=== PATIENT | male | born 1965 | race Caucasian/White ===

== ENCOUNTER 2018-01-25 13:39 | Emergency (ER) | payer SELFPAY ==
[2018-01-25 13:46] VITALS: BP 161/98; PULSE 115; RESP 20; TEMP 36.8; O2SAT 97
--- NOTE | 2018-01-25 14:17 | DI.RPTCT_ITS ---
SYMPTOMS/DIAGNOSIS: RIGHT EYE FLOATERS, BLURRY VISION, ? ACUTE CEREBROVASCULAR ACCIDENT NONCONTRAST HEAD CT: Comparison is made with November,. No intracranial hemorrhage, mass or infarct is seen. The ventricles are normal in size. There is no evidence of skull fracture or sinus opacification. IMPRESSION: Negative head CT.
--- NOTE | 2018-01-25 14:18 | ED.GENADUL_ITS ---
Disposition Clinical Impression: Visual floaters Disposition: HOME Condition: Stable Instructions: Visual Floaters (ED) Additional Instructions: You may have a posterior vitreous hemorrhage in your right eye. For further evaluation of this, follow-up with your scheduled appointment with [facility] at 4:20 PM tomorrow afternoon. The number for [facility] in [facility] is [phone]. Return to the emergency department with any worsening or new concerning symptoms. Medical Decision Making - Radiology Data Radiology results: report reviewed, image reviewed CT head: Negative CTA head negative CTA neck: 1. Minimal atheromatous plaquing within the carotid bulbs bilaterally. 2. Otherwise normal neck CTA. - Medical Decision Making 1345 -- 52yo M w/ a h/o HTN who presents with large squiggly floater in R eye x 4 days. Admits to blurry vision only when moving eye around and floater moves. He has no complains of eye injury, pain, headache or dizziness. No focal deficits. He ambulated easily back to room and is in no acute distress. OU 20/50, OD 20/40, OS 20/40. As there is no significant visual deficits or c/o complete painless loss of vision, retinal detachment less likely. Will obtain stat CT head and call neurology for recommendations. 1445 -- discussed with Dr. Vogt. Agrees with plan that if CT head negative, CTA head and neck would be recommended to rule out any embolus, and if otherwise negative recommends follow-up with [facility]. 1500 -- Case discussed with radiologist -CT head negative. Will send for CTA head and neck once labs resulted. 1645 --CT head and neck pending. Discussed with Dr. Alston at [facility] -states appears more consistent with a posterior vitreous detachment rather than a retinal detachment as patient has minimal visual loss. Does not need emergent transfer or evaluation. Can see patient in the office tomorrow. Patient requested afternoon appointment after work. Patient will follow-up at 4 :20 PM tomorrow. 1700 -- CTA head and neck negative for acute findings. Pt is requesting to leave. He appears in no acute distress and is fully dressed standing in doorway. Instructed to f/u with [facility] appointment tomorrow and to return here immediately with any worsening symptoms or concerns. History of Present Illness - General Chief complaint: EyeProblem Stated complaint: VISION IN RIGHT EYE Time Seen by Provider: 01/25/18 13:43 Source: patient Mode of arrival: ambulatory Limitations: no limitations - History of Present Illness Initial comments: Pt is a 52yo M who presents to the ED w/ a c/o a large squiggly floater in R eye for the past 4 days. Admits to blurry vision when he looks around and the floater moves. Otherwise denies any holes in vision, flashes of light, or loss of peripheral vision. Denies headache, dizziness, nausea, vomiting, chest pain, sob, or extremity weakness or numbness. Denies recent head or eye injury or eye pain. Wears reading glasses. Denies contacts. - Related Data Hydrochlorothiazide [Hydrodiuril] 25 mg PO DAILY #90 tab-cap 04/09/17 Lisinopril 5 mg PO DAILY #90 tab-cap 04/09/17 Allergies Allergy/AdvReac Type Severity Reaction Status Date / Time No Known Allergies Allergy Unverified 01/25/18 13:49 Review of Systems Constitutional: denies: chills, fever Eyes: vision change. denies: eye pain, eye discharge ENT: denies: ear pain, dental pain Respiratory: denies: cough, shortness of breath Cardiovascular: denies: chest pain, dyspnea on exertion Gastrointestinal: denies: abdominal pain, nausea, vomiting Genitourinary: denies: urgency, dysuria, frequency Musculoskeletal: denies: back pain Skin: denies: rash, lesions Neurological: denies: headache, weakness, numbness Past Medical History - Past Medical History Medical history: GERD, hypertension Surgical history: other (Hernia repair 2) - Social History Smoking status: current everyday smoker Alcohol use: occasionally Drug use: none General Exam - General Limitations: no limitations General appearance: alert, in no apparent distress - Head Head exam: Present: atraumatic, normocephalic - Eye Eye exam: Present: PERRL, EOMI. Absent: scleral icterus, conjunctival injection , periorbital swelling, periorbital tenderness - ENT ENT exam: Present: mucous membranes moist - Respiratory Respiratory exam: Present: normal lung sounds bilaterally. Absent: respiratory distress, wheezes, rales, rhonchi, stridor - Cardiovascular Cardiovascular Exam: Present: regular rate, normal rhythm. Absent: bradycardia , tachycardia - GI/Abdominal GI/Abdominal exam: Present: soft, normal bowel sounds. Absent: distended, tenderness, guarding, rebound, rigid - Neurological Exam Neurological exam: Present: alert, oriented X3, CN II-XII intact, other (MS 5/5 b/l UE/LE). Absent: motor sensory deficit - Psychiatric Psychiatric exam: Present: normal affect - Skin Skin exam: Present: warm, dry. Absent: intact Course Vital Signs - 24 hr 01/25/18 13:46 Temperature 98.2 F Pulse 115 H Respiratory 20 Rate Blood Pressure 161/98 Pulse Oximetry 97
[2018-01-25 15:39] LABS: Abs Immature Grans 0.03 k/cumm (0.0-0.09); Absolute Basophil Count 0.03 k/cumm (0.0-0.2); Absolute Eosinophil Count 0.08 k/cumm (0.0-0.7); Absolute Lymphocyte Count 1.91 k/cumm (1.2-3.4); Absolute Monocyte Count 0.84 k/cumm (0.11-0.7); Absolute Neutrophil Count 5.34 k/cumm (1.2-6.7); Basophils % 0.4; HCT 48.8 % (40.0-50.0); Immature Grans % 0.4; Lymphocytes % 23.2; Mean Corp. HGB Concentration 34.8 g/dL (32.0-36.0); Mean Corpuscular Hemoglobin 33.3 pg (27.0-33.0); Mean Corpuscular Volume 95.5 fL (80-95); Mean Platelet Volume 10.1 fL (8.0-11.0); Monocytes % 10.2; Neutrophils % 64.8; Platelet Count 301 x1000/uL (130-400); RBC 5.11 m/cumm (4.50-6.00); RBC Distribution Width 13.3 % (11.8-14.1); White Blood Cell Count 8.23 k/cumm (4.4-10.8)
[2018-01-25 15:52] LABS: Anion Gap 7.8 mmol/L (3-11); BUN 9 mg/dL (7-18); CO2 32.2 mmol/L (21.0-32.0); CREATININE 0.86 mg/dL (0.70-1.30); Calcium 9.3 mg/dL (8.5-10.1); Chloride 98 mmol/L (98-107); Glucose 115 mg/dL (70-100); Potassium 3.6 mmol/L (3.5-5.1); Sodium 138 mmol/L (136-145)
[2018-01-25] MEDS: Normal Saline 1,000 ML 1000 ML IV (16:05)
--- NOTE | 2018-01-25 16:25 | DI.RPTCT_ITS ---
SYMPTOMS/DIAGNOSIS: RT EYE FLOATERS, ? VESSEL OCCLUSION CT ANGIOGRAPHY CERVICAL AND CRANIAL: CT angiography was performed with multi slice acquisition and multi planar and 3D reconstruction. CT Angiogram of the cervical and cranial regions was performed with intravenous infusion of 85 cc's of Omnipaque 350. Images obtained through the lung apices show no specific abnormality of the lungs. The tracheal laryngeal structures appear intact. No superior mediastinal or cervical mass or adenopathy. The bony structures appear intact. The orbital and temporal bone structures are unremarkable as visualized. The aortic arch and major branch vessels appear intact. Right and left common and internal carotid arteries are essentially normal with no significant stenosis, aneurysm or dissection. Minimal atheromatous plaque in right and left carotid bulbs. Middle, anterior and posterior cerebral arteries are unremarkable in appearance as are their major branches. No occlusion or aneurysm identified. Vertebral and basilar arteries appear normal. The posterior cerebral arteries appear normal. CONCLUSION: Negative CTA neck and head.
[2018-01-25] MEDS: Omnipaque 350 MG/ML 100 ML BTL IJ (16:34)
--- NOTE | 2018-01-25 17:01 | DI.VRAD_ITS ---
EXAM: CT Angiography Head With Intravenous Contrast CLINICAL HISTORY: 52 years old, male; Signs and symptoms; Other: Rt eye floaters, R/O vessel occlusion TECHNIQUE: Axial computed tomographic angiography images of the head with intravenous contrast using CT angiography protocol. MIP reconstructed images were created and reviewed. Coronal reformatted images were created and reviewed. CONTRAST: 85 mL of Omnipaque 350 administered intravenously. COMPARISON: No relevant prior studies available. FINDINGS: Right internal carotid artery: No acute findings. Intracranial segment is patent with no significant stenosis. No aneurysm. Right anterior cerebral artery: Unremarkable. No occlusion or significant stenosis. No aneurysm. Right middle cerebral artery: Unremarkable. No occlusion or significant stenosis. No aneurysm. Right posterior cerebral artery: Unremarkable. No occlusion or significant stenosis. No aneurysm. Right vertebral artery: Unremarkable as visualized. Left internal carotid artery: No acute findings. Intracranial segment is patent with no significant stenosis. No aneurysm. Left anterior cerebral artery: Unremarkable. No occlusion or significant stenosis. No aneurysm. Left middle cerebral artery: Unremarkable. No occlusion or significant stenosis. No aneurysm. Left posterior cerebral artery: Unremarkable. No occlusion or significant stenosis. No aneurysm. Left vertebral artery: Unremarkable as visualized. Basilar artery: Unremarkable. No occlusion or significant stenosis. No aneurysm. IMPRESSION: 1. Normal head CTA. EXAM: CT Angiography Neck With Intravenous Contrast CLINICAL HISTORY: 52 years old, male; Signs and symptoms; Other: Rt eye floaters, R/O vessel occlusion TECHNIQUE: Axial computed tomographic angiography images of the neck with intravenous contrast using CT angiography protocol. MIP reconstructed images were created and reviewed. Coronal reformatted images were created and reviewed. CONTRAST: 85 mL of Omnipaque 350 administered intravenously. 85 mL of Omnipaque 350 administered intravenously. COMPARISON: CT - HEAD WITHOUT CONTRAST 2018-01-25 14:36 FINDINGS: VASCULATURE: Right common carotid artery: Minimal focal atheromatous calcific plaquing is seen in the medial carotid bulb. No significant stenosis. No dissection or occlusion. Right internal carotid artery: Unremarkable. Extracranial segment is patent with no significant stenosis. No dissection or occlusion. Right external carotid artery: Unremarkable. No occlusion. Right vertebral artery: Unremarkable. No significant stenosis. No dissection or occlusion. Left common carotid artery: Atherosclerotic calcific plaquing is present within the lateral carotid bulb. No significant stenosis. No dissection or occlusion. Left internal carotid artery: Unremarkable. Extracranial segment is patent with no significant stenosis. No dissection or occlusion. Left external carotid artery: Unremarkable. No occlusion. Left vertebral artery: Unremarkable. No significant stenosis. No dissection or occlusion. NECK: Bones/joints: No acute fracture. No dislocation. Soft tissues: Unremarkable as visualized. No mass. CAROTID STENOSIS REFERENCE USING NASCET CRITERIA: % ICA stenosis = (1 - narrowest ICA diameter/diameter of distal cervical ICA) x 100. Mild - <50% stenosis. Moderate - 50-69% stenosis. Severe - 70-94% stenosis. Near occlusion - 95-99% stenosis. Occluded - 100% stenosis. IMPRESSION: 1. Minimal atheromatous plaquing within the carotid bulbs bilaterally and are as described above. 2. Otherwise, normal neck CTA. Dictated and Authenticated by: Xander Ellington MD. Ordering:AVRIL OREILLY MD
[2018-01-25 17:03] VITALS: BP 122/87; PULSE 98; RESP 18; TEMP 36.7; O2SAT 98
[2018-01-25 17:23] VITALS: BP 122/87; PULSE 98; RESP 18; TEMP 36.7; O2SAT 98
== END 2018-01-25 17:23 | disposition home or self-care (01) ==
PROVIDERS: Emergency Provider Physician Assistant; PCP Emergency Medicine
DX: H43.391 Other vitreous opacities, right eye (principal); H53.8 Other visual disturbances; I10 Essential (primary) hypertension
CPT/HCPCS: 36415; 70496; 70498; 80048; 99284; 70450; 85025; 99285; J3490

== ENCOUNTER 2019-01-30 14:23 | Emergency (ER) | payer SELFPAY ==
[2019-01-30 14:31] VITALS: BP 137/99; PULSE 113; RESP 16; TEMP 36.7; O2SAT 96
--- NOTE | 2019-01-30 15:05 | DI.RAD_ITS ---
SYMPTOM/DIAGNOSIS: LEFT SHOULDER PAIN BEGAN WHILE LIFTING. LEFT SHOULDER: 01/30 Five views were obtained. Note is made of an old healed or healing fracture of the left 5th rib posteriorly. There are mild degenerative changes of the glenohumeral and acromioclavicular joints. There is no evidence of an acute fracture or dislocation.
[2019-01-30] MEDS: Lidocaine 5% Patch 1 PATCH (16:23)
--- NOTE | 2019-01-30 16:51 | ED.GENADUL_ITS ---
Discharge Plan Disposition Patient Disposition: HOME Condition: Stable Discharge Details Chief Complaint: Orthopedic Clinical Impression: Shoulder pain Primary Care Provider: Bud Dacosta ED Provider: Emily Sexton Home Meds and New Rx's Prescriptions: New lidocaine [Lidoderm] 5 % adhesive patch,medicated 1 patch TP DAILY Qty: 15 RF: 0 Continued hydrochlorothiazide 25 mg tablet 25 mg PO DAILY Qty: 90 RF: 4 lisinopril 5 mg tablet 5 mg PO DAILY Qty: 90 RF: 4 Discharge Instructions Instructions: Shoulder Pain (ED) Additional Instructions: Please return immediately to the emergency department if you develop any new or worsening symptoms or if you become otherwise concerned. It is extremely important that you call as soon as possible to make an appointment to be seen in follow-up for this visit by an orthopedic surgeon and also by your primary care doctor. Stand Alone Forms: Work Release Referrals: Bud Dacosta, [Primary Care Provider] - Rasheed Gordon MD [ [facility] STAFF PHYSICIAN] - Discharge Data Discharge Date/Time-TO BE ENTERED AT DEPARTURE: 01/30/19 17:07 Medical Decision Making Suleman Velez is a 53 y/o man with h/o HTN who presented to the emergency depart ment with shoulder pain that began while patient was lifting a cement block 3 days ago, unchanged since that time. Record review shows patient seen here recently for visual changes, patient reports not resolved. On exam patient is very well and nontoxic appearing. Focal tenderness to palpation at the coracoid without overlying skin changes. Patient able to range the shoulder fully, though has pain with abduction greater than 180 degrees and placing her behind his back. Mild tachycardia at 100. Exam/history is not consistent with ACS, PE, DVT, PTX, acute aortic or other vascular pathology, other acute emergent life- threatening process. Doubt fracture, suspect soft tissue injury. Plan for x- ray, EKG for tachycardia. Patient states that he does not want to undergo further evaluation for tachycardia, also record review shows patient with heart rate 98 or greater on multiple visits to the ED beginning 07/01. Shoulder x-ray okay. I had a lengthy discussion with the patient regarding return to emergency department precautions, home care, importance of outpatient follow-up with for shoulder pain and also for tachycardia. Patient verbalized understanding of the plan and was amenable. All questions were answered. Patient was discharged home with clear plan for outpatient follow-up. Medical Records Medical records reviewed: Yes I reviewed the patient's medical records. Imaging Data Radiologic Study: Attestation: I personally reviewed and interpreted this imaging study as follows: Radiologist's impression: EXAM: XR Left Shoulder EXAM DATE/TIME: 01/30/2019 3:05 PM CLINICAL HISTORY: 53 years old, male; Left; Patient HX: L shoulder pain began while lifting TECHNIQUE: Imaging protocol: XR Left shoulder. Views: 2 or more views. COMPARISON: No relevant prior studies available. FINDINGS: Bones/joints: Healing fifth posterior rib fracture. Degenerative changes of the acromioclavicular joint. Soft tissues: Unremarkable. IMPRESSION: 1. No evidence for acute bony injury left shoulder. 2. Healing fifth posterior rib fracture. ECG Data Attestation: I personally reviewed and interpreted this ECG (s) as follows: Interpretation: EKG shows sinus tachycardia at 103, borderline axis, incomplete right bundle branch block present on prior 2016, no STEMI, nondiagnostic EKG HPI General Mode of arrival: ambulatory . Date/Time Provider Initiated Documentation: 01/30/19 14:34 . Limitations to Documentation: no limitations . Information obtained by: patient, RN notes reviewed and old records reviewed . HPI Narrative: Suleman Velez is a 53-year-old man with a history of hypertension presenting to the emergency department shoulder pain. Patient reports that 3 days ago he was lifting cement blocks when he felt sudden onset of sharp pain in his anterior left shoulder, nonradiating. Patient reports that pain has been on-going since that time, severity unchanged. Patient reports that when he is not using the arm, his pain resolves. He reports that when he lifts the arm above his head, rotates the arm behind his back, or pushes on the area the pain returns. Pain is nonpleuritic, non-exertional. He denies any other pain, cough, shortness of breath, fever, vomiting, diarrhea, numbness, weakness, swelling. Has been eating and drinking as usual. Going about his daily activities as usual. No recent illness, no recent travel. Related Data Home Medications Medication Instructions Recorded Confirmed hydrochlorothiazide 25 mg tablet 25 mg PO DAILY #90 tab-cap 05/13/18 01/30/19 lisinopril 5 mg tablet 5 mg PO DAILY #90 tab-cap 05/13/18 01/30/19 lidocaine [Lidoderm] 1 patch TP DAILY #15 each 01/30/19 Previous Rx's Medication Instructions Recorded hydrochlorothiazide 25 mg tablet 25 mg PO DAILY #90 tab-cap 05/13/18 lisinopril 5 mg tablet 5 mg PO DAILY #90 tab-cap 05/13/18 lidocaine [Lidoderm] 1 patch TP DAILY #15 each 01/30/19 Allergies Allergy/AdvReac Type Severity Reaction Status Date / Time No Known Allergies Allergy Unverified 01/25/18 13:49 General Stated Complaint: Orthopedic KENDELL: 4 Review of Systems Review of Systems Constitutional: denies fevers Eyes: denies eye pain ENT: denies facial pain, dental pain, sore throat Cardiovascular: denies chest pain, edema Respiratory: denies SOB, cough GI: denies abdominal pain, vomiting, diarrhea : denies flank pain MSK: denies back pain, neck pain, myalgias, reports shoulder pain Skin: denies rash Neuro: denies headaches, numbness, weakness PFSH Social History Smoking/Tobacco Use Status: Current every day Tobacco Type: cigarettes Alcohol Intake: current Alcohol Intake frequency: 0-2 drinks per day Drug use: Rarely Substance use type: marijuana Do you feel safe at home: Yes Do you feel safe in your relationship?: Yes Exam Narrative Exam Narrative: Constitutional: well and [id number], pleasant, conversing normally HENT: head atraumatic/normocephalic/normal inspection, mucous membranes moist Eyes: conjunctiva normal, sclera normal, pupils 3mm b/l Neck: no stridor, normal ROM, trachea midline Chest: normal inspection Resp: normal work of breathing, LCTAB Cardio: tachycardic rate 100, normal rhythm, no murmur appreciated Back: normal inspection, no rash Skin: warm, dry, normal color, no rash Neuro: alert, not altered, grossly non-focal, normal tone Ext: no edema, radial pulses intact and symmetric, no tenderness of the left forearm or upper arm, no tenderness of the left scapula or clavicle, focal tenderness to palpation just superior and lateral to the coracoid that reproduces pain. Full range of motion of the shoulder, no pain reproduced with abduction greater than 180 degrees and rotation of the arm behind the patient's back. Motor 5 out of 5 bilateral upper extremities. Normal sensation left arm. Psych: normal mood, normal affect, normal behavior Course Vital Signs Temperature 36.7 C 01/30/19 14:31 Pulse 113 H 01/30/19 14:31 Respiratory Rate 16 01/30/19 14:31 Blood Pressure 137/99 H 01/30/19 14:31 Pulse Oximetry 96 01/30/19 14:31 Temperature 36.7 C 01/30/19 14:31 Temperature Source Temporal Artery Scan 01/30/19 14:31 Pulse 113 H 01/30/19 14:31 Respiratory Rate 16 01/30/19 14:31 Respiratory Effort Non-Labored 01/30/19 14:34 Blood Pressure 137/99 H 01/30/19 14:31 Blood Pressure Position Supine 01/30/19 14:31 Pulse Oximetry 96 01/30/19 14:31 Oxygen Delivery Method Room Air 01/30/19 14:31 Oxygen Flow Rate 0 01/30/19 14:31
[2019-01-30 16:54] VITALS: BP 133/88; PULSE 107; RESP 16; O2SAT 96
[2019-01-30] MEDS: Ibuprofen 400 MG TAB PO (16:54)
--- NOTE | 2019-01-30 16:57 | DI.VRAD_ITS ---
EXAM: XR Left Shoulder EXAM DATE/TIME: 01/30/2019 3:05 PM CLINICAL HISTORY: 53 years old, male; Left; Patient HX: L shoulder pain began while lifting TECHNIQUE: Imaging protocol: XR Left shoulder. Views: 2 or more views. COMPARISON: No relevant prior studies available. FINDINGS: Bones/joints: Healing fifth posterior rib fracture. Degenerative changes of the acromioclavicular joint. Soft tissues: Unremarkable. IMPRESSION: 1. No evidence for acute bony injury left shoulder. 2. Healing fifth posterior rib fracture. Dictated and Authenticated by: Charley Ramirez MD. Ordering:JOE Diaz MD
== END 2019-01-30 17:07 | disposition home or self-care (01) ==
PROVIDERS: Emergency Provider Student in an Organized Health Care Education/Training Program; PCP Emergency Medicine
DX: M25.512 Pain in left shoulder (principal); X50.0XXA Overexertion from strenuous movement or load, initial encounter; Y99.0 Civilian activity done for income or pay; I10 Essential (primary) hypertension; R00.0 Tachycardia, unspecified; Z04.2 Encounter for examination and observation following work accident
CPT/HCPCS: 93005; 99285; 73030; 93010; 99284; L3650

== ENCOUNTER 2019-07-01 08:37 | Emergency (ER) | payer OTHER, SELFPAY ==
[2019-07-01 08:40] VITALS: BP 163/96; PULSE 121; TEMP 37; O2SAT 98
--- NOTE | 2019-07-01 08:52 | W.ED.GENAD ---
Discharge Plan Disposition Patient Disposition: HOME Condition: Improving Discharge Details Chief Complaint: Laceration Clinical Impression: Laceration of axilla, left Primary Care Provider: Bud Dacosta ED Provider: Martinez Ramos Home Meds and New Rx's Prescriptions: New cephalexin 500 mg capsule 500 mg PO TID 7 Days Qty: 21 RF: 0 Continued hydrochlorothiazide 25 mg tablet 25 mg PO DAILY Qty: 90 RF: 4 lisinopril 5 mg tablet 5 mg PO DAILY Qty: 90 RF: 4 No Action lidocaine [Lidoderm] 5 % adhesive patch,medicated 1 patch TP DAILY Qty: 15 RF: 0 Discharge Instructions Instructions: Laceration (ED) Additional Instructions: Followup in Surgery clinic on Wednesday at 9AM for recheck. The clinic number is [phone]. Leave drain in place. You may need frequent dressing changes as we discussed. Wear sling until seen in general surgery clinic. Take antibiotics as prescribed. Return for worsening pain, the development of fever, foul smelling discharge from the wound, numbness or weakness of the hand, or any other concerns. May use Tylenol and ibuprofen as needed for pain. Referrals: Wendi Spencer MD [ [facility] STAFF PHYSICIAN] - Medical Decision Making 54-year-old male presents from home stating he slipped and fell on his front porch this morning and lacerated his left axilla on the edge of a porch board. Denies any other injury. On exam he has a large laceration that tracks proximally into the axilla. He has normal distal radial pulse, no sensation deficits and normal motor throughout. There does not appear to be injury to the neurovascular bundle/brachial plexus. Patient consented for procedure, he was given parenteral antibiotic, small amount of anxiolytic, fluid bolus. I discussed the case with Dr. Spencer. Patient was anesthetized, liberally irrigated with approximately 400 cc of fluid, examined in a bloodless field with no evidence of foreign body. 2 deep 4-0 Vicryl sutures were placed in the subcutaneous layers. A [place] drain was placed. 12 interrupted Prolene sutures including 1 to anchor the [place] drain were placed with good wound apposition. Patient improved following procedure. I will place him on Keflex. He will follow-up with surgery clinic at 9 AM on Wednesday for wound check. I will place him in a sling until that time. He understands return precautions to the ER in the interim. HPI General Mode of arrival: ambulatory. Date/Time Provider Initiated Documentation: 07/01/19 08:38. Limitations to Documentation: no limitations. Information obtained by: patient. History of Present Illness 54 year old M presents to the emergency department with the chief complaint of Left axilla injury, described as moderate, Quality is described as dull, and is localized to the left. Patient reports no radiation. Patient started experiencing this hour(s) and it has been constant. No relieving factors improve symptom(s), No exacerbating factors reported . Patient notes denies chest pain, headaches, nausea/vomiting, shortness of breath and syncope. Patient did receive the following treatments prior to arrival, none Related Data Home Medications Medication Instructions Recorded Confirmed hydrochlorothiazide 25 mg tablet 25 mg PO DAILY #90 tab-cap 05/13/18 01/30/19 lisinopril 5 mg tablet 5 mg PO DAILY #90 tab-cap 05/13/18 01/30/19 lidocaine [Lidoderm] 1 patch TP DAILY #15 each 01/30/19 cephalexin 500 mg PO TID 7 Days #21 cap 07/01/19 Previous Rx's Medication Instructions Recorded hydrochlorothiazide 25 mg tablet 25 mg PO DAILY #90 tab-cap 05/13/18 lisinopril 5 mg tablet 5 mg PO DAILY #90 tab-cap 05/13/18 lidocaine [Lidoderm] 1 patch TP DAILY #15 each 01/30/19 cephalexin 500 mg PO TID 7 Days #21 cap 07/01/19 Allergies Allergy/AdvReac Type Severity Reaction Status Date / Time No Known Allergies Allergy Unverified 01/25/18 13:49 General Stated Complaint: Laceration KENDELL: 4 Review of Systems Narrative: Denies other injury. No head/neck/backslash abdominal pain. No shortness of breath. 6 systems reviewed and otherwise negative. PFSH Social History Smoking/Tobacco Use Status: Current every day Tobacco Type: cigarettes Alcohol Intake: current Alcohol Intake frequency: 0-2 drinks per day Drug use: Rarely Substance use type: marijuana Do you feel safe at home: Yes Do you feel safe in your relationship?: Yes Exam Narrative Exam Narrative: GEN: awake, alert, oriented 3. Pleasant, well groomed, interactive. HEAD: Normocephalic, atraumatic ENT: Mucous membranes moist, oropharynx unremarkable, External ear exam unremarkable EYES: PERRL, EOMI NECK: Full ROM, no ZEFERINO, no menigismus CHEST/RESP: The left axilla has a jagged, irregular large puncture wound with approximately 8 cm, no bony tenderness, chest is clear to auscultation bilateral, no wheeze/rhonchi/rales CARDIOVASCULAR: RRR, no murmur, rub anita. 2+ Rad pulse bilateral ABDOMEN: Soft, nontender, no mass. +Bowel sounds EXT: Full ROM, no edema, no rash. 2+ radial pulse bilateral upper extremity. Patient extends the wrist with normal 5 out of 5 motor. Is able to make the okay sign cross long finger over index and touch thumb to fifth digit without difficulty. Sensation is intact throughout. Motor of the biceps and triceps as well as arm abduction is 5 out of 5 throughout. Neuro: Grossly normal neurologic exam, conversant, interactive. Psych: Speech fluent, thoughts congruent, affect normal Course Vital Signs Vital signs: Vital Signs Temperature 37.0 C 07/01/19 08:40 Pulse 121 H 07/01/19 08:40 Blood Pressure 163/96 H 07/01/19 08:40 Pulse Oximetry 98 07/01/19 08:40 Temperature 37.0 C 07/01/19 08:40 Temperature Source Skin 07/01/19 08:40 Pulse 121 H 07/01/19 08:40 Blood Pressure 163/96 H 07/01/19 08:40 Blood Pressure Position Sitting 07/01/19 08:40 Pulse Oximetry 98 07/01/19 08:40 Oxygen Delivery Method Room Air 07/01/19 08:40 Oxygen Flow Rate 0 07/01/19 08:40 Pain Level 4 07/01/19 08:40 Procedures Laceration Laceration 1: Site: chest and upper extremity Side (If applicable): left Size (cm): 8 Description: irregular Depth: simple, single layer Local Anesthetic: Lidocaine 1% Amount of anesthesia used (mL): 15 Pre-repair: wound explored and irrigated extensively Skin layer closed with: other (Prolene) Size (cm): 4-0 Number of sutures: 12 Technique: simple, interrupted Subcutaneous layer closed with: vicryl Size: 4-0 Number of sutures: 2 Technique: simple, interrupted
[2019-07-01] MEDS: Normal Saline 1,000 ML 1000 ML IV (09:05)
[2019-07-01] MEDS: ceFAZolin 1 GM/50 ML BAG IVPB (09:06)
[2019-07-01] MEDS: Normal Saline Flush 10 ML SYR IVP (09:08)
[2019-07-01] MEDS: Lidocaine 1% Multi-Dose 50 ML VIAL IJ (09:08)
[2019-07-01] MEDS: LORazepam 2 MG/ML VIAL 0.5 MG IVP ×2 (09:15→09:30)
[2019-07-01] MEDS: Ketorolac 15 MG/ML VIAL IVP (09:29)
[2019-07-01] MEDS: Tetanus & Diphtheria Tox,ADULT 0.5 ML VIAL IM (09:31)
[2019-07-01 10:22] VITALS: BP 155/93; PULSE 112; RESP 16; O2SAT 96
[2019-07-01] MEDS: Cephalexin 500 MG CAP, 4 CAPS/BTL PO (10:26)
== END 2019-07-01 09:26 | disposition home or self-care (01) ==
PROVIDERS: Emergency Provider Emergency Medicine; PCP Emergency Medicine
DX: S41.112A Laceration without foreign body of left upper arm, initial encounter (principal); W26.8XXA Contact with other sharp object(s), not elsewhere classified, initial encounter; W01.198A Fall on same level from slipping, tripping and stumbling with subsequent striking against other object, initial encounter; I10 Essential (primary) hypertension
CPT/HCPCS: 12034; 36415; 90471; 96361; 96365; 96375; 99284; 99283; J0690; J1885; J2060; L3650

== ENCOUNTER 2020-11-25 08:33 | Outpatient (CLI) | payer SELFPAY ==
[2020-11-25 12:52] LABS: Hemoglobin A1C 5.2 % (<5.7)
[2020-11-25 12:59] LABS: ALT 58 U/L (16-63); AST 30 U/L (15-37); Albumin 4.2 g/dL (3.4-5.0); Alkaline Phosphatase 86 U/L (46-116); Anion Gap 9.3 mmol/L (3-11); BUN 13 mg/dL (7-18); Bilirubin, Total 0.6 mg/dL (0.2-1.0); CO2 28.7 mmol/L (21.0-32.0); CREATININE 0.8 mg/dL (0.70-1.30); Calcium 9.5 mg/dL (8.5-10.1); Calculated LDL 94 mg/dL (<100); Chloride 99 mmol/L (98-107); Cholesterol 164 mg/dL (<200); Glucose 119 mg/dL (74-106); HDL Cholesterol 62 mg/dL (40-60); Potassium 4.2 mmol/L (3.5-5.1); Sodium 137 mmol/L (136-145); Total Protein 7.4 g/dL (6.4-8.2); Triglyceride 43 mg/dL (<150)
== END 2020-11-25 08:34 | disposition home or self-care (01) ==
LOC: LOS 08:33
PROVIDERS: PCP Nurse Practitioner Family; Visit Provider Nurse Practitioner Family
DX: I10 Essential (primary) hypertension (principal); Z13.1 Encounter for screening for diabetes mellitus; Z13.220 Encounter for screening for lipoid disorders
CPT/HCPCS: 36415; 80053; 80061; 83036

== ENCOUNTER 2022-09-28 12:49 | Emergency (ER) | payer BC, SELFPAY ==
[2022-09-28 12:57] VITALS: BP 177/96; PULSE 110; RESP 16; TEMP 37.3; O2SAT 98
--- NOTE | 2022-09-28 15:00 | DI.RAD_ITS ---
Exam(s) XR RIBS LT W PA LAT CHEST EXAM: XR RIBS LT W PA LAT CHEST CLINICAL HISTORY: fall on left side. TECHNIQUE: 2D digital imaging was performed. COMPARISON: CR CHEST 2 VIEWS PA,LAT from 04/21/2010 FINDINGS: Total 6 views: Left rib cage: Are mildly displaced fractures of the left 6, 7th and 8th ribs. There is no pneumothorax but there is infiltrate in the left lower lobe the hind the arch shadow whic h was not evident on chest x-ray of 2009. No other pulmonary findings. No pneumothorax. Heart size normal. Mediastinum not widened or shifted. Right hemithorax unremarkable. IMPRESSION: There are mildly displaced fractures of left 6, 7th, and 8th ribs. No pneumothorax but there is infiltrate in the left lower lobe evident. DATA REPOSITORY: RADIATION DOSE DELIVERED:
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
[2022-09-28 16:27] VITALS: BP 140/98; PULSE 103; RESP 16; TEMP 36.5; O2SAT 95
== END 2022-09-28 16:30 | disposition home or self-care (01) ==
PROVIDERS: Emergency Provider Physician Assistant; PCP Nurse Practitioner Family
DX: S22.42XA Multiple fractures of ribs, left side, initial encounter for closed fracture (principal); W18.40XA Slipping, tripping and stumbling without falling, unspecified, initial encounter; I10 Essential (primary) hypertension
CPT/HCPCS: 99283; 71046; 71100; 99284

== ENCOUNTER 2023-07-21 09:47 | Outpatient (REF) | payer BC, SELFPAY ==
--- NOTE | 2023-07-21 07:30 | SKI_PTH ---
PATIENT: Suleman Velez LOC: [facility] U#:[id number] AGE/SX: 58/M ROOM: RE07/21/[address]: Miles Kaur MD : 1965 BED: DIS: 07/21/2023 SPEC #: [id number] RECD: 07/21/23 18:17 STATUS: WILFRED ELLIOTT #: [id number] GO: 07/21/23 07:[address]: Miles Kaur DEPT: Surgical Specimen RECD BY: Sapna Lewis ENTERED: 07/21/23 18:18 SP TYPE: CHARLI DOZIER DR: Feng Carpenter, SYSTEMS INTEGRATOR Tissues: 1 - SKIN BIOPSY(SHAVE/PUNCH) 2 - SKIN BIOPSY(SHAVE/PUNCH) Procedures: SKIN LEVEL 4 Comments: [id number]
== END 2023-07-21 09:48 | disposition home or self-care (01) ==
LOC: LBN 09:47
PROVIDERS: PCP Nurse Practitioner Family; Visit Provider Otolaryngology
DX: L98.9 Disorder of the skin and subcutaneous tissue, unspecified (principal); L21.9 Seborrheic dermatitis, unspecified
CPT/HCPCS: 88305

== ENCOUNTER 2024-01-21 09:01 | Emergency (ER) | payer BC, SELFPAY ==
[2024-01-21 09:04] VITALS: BP 181/111; PULSE 99; RESP 20; TEMP 36.6; O2SAT 100
--- NOTE | 2024-01-21 09:15 | DI.RAD_ITS ---
Exam(s) XR KNEE RT 3V AP,LAT,WINNIE EXAM: XR KNEE RT 3V AP,LAT,WINNIE CLINICAL HISTORY: pain s/p fall. TECHNIQUE: 2D digital imaging was performed. COMPARISON: No exams were available for comparison FINDINGS: There are 2 orthopedic pins in the patella. There are 2 parallel thin nondisplaced fracture lines in the lateral half of the patella, age indeter minate. No significant displacement. No other fractures identified but there is a prominent joint e ffusion. Also calcifications seen in the soft tissues above the patella. Otherwise there is advanced degenerative narrowing of the medial compartment of the knee. Also chond rocalcinosis in the medial lateral compartments. IMPRESSION: Two orthopedic pins evident in the patella. Patellar fracture lines noted which are nondisplaced. U nfortunately there are no previous radiographs of the knee in our PACS for comparison. There is mild anterior soft tissue swelling over the patella. There is a large joint effusion. Other findings as above. DATA REPOSITORY: RADIATION DOSE DELIVERED:
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
[2024-01-21 10:18] VITALS: BP 156/104; PULSE 99; RESP 18; O2SAT 100
== END 2024-01-21 10:34 | disposition home or self-care (01) ==
PROVIDERS: Emergency Provider Emergency Medicine; PCP Nurse Practitioner Family
DX: S82.091A Other fracture of right patella, initial encounter for closed fracture (principal); S80.01XA Contusion of right knee, initial encounter; F17.210 Nicotine dependence, cigarettes, uncomplicated; Z86.718 Personal history of other venous thrombosis and embolism; W01.198A Fall on same level from slipping, tripping and stumbling with subsequent striking against other object, initial encounter; Y93.01 Activity, walking, marching and hiking; Y92.480 Sidewalk as the place of occurrence of the external cause
CPT/HCPCS: 73562; 99283

== ENCOUNTER 2024-08-07 07:41 | Day surgery (SDC) | payer BC, SELFPAY ==
--- NOTE | 2024-08-06 10:13 | PDOC.DSDIS_ITS ---
Date of service: 08/06/24 Discharge Plan Disposition Patient Disposition: Home Condition: Good Discharge Details Reason For Visit: Screening colonoscopy Attending Provider: Jude Tyler Primary Care Provider: Feng Carpenter Home Meds and New Rx's Prescriptions: Continued lisinopril 30 mg tablet 30 mg PO DAILY Qty: 90 3RF Discontinued bisacodyl [Dulcolax (bisacodyl)] 5 mg tablet,delayed release (DR/EC) 5 mg PO ONCE Qty: 4 0RF Rx Instructions: Take per colonoscopy instructions provided by ordering providers office polyethylene glycol 3350 17 gram/dose powder 17 g PO ONCE Qty: 238 0RF Rx Instructions: Take per colonoscopy instructions provided by ordering providers office Discharge Instructions Instructions: Colon polyps, Diverticulosis Additional Instructions: Xiomy, was very nice meeting you today, and I hope you feel well after the procedure. I did find, and remove a total of 9 polyps today. This is a relatively high number of polyps, and 2 of them are particularly large. All of these polyps will be sent off to the pathologist for their review, since polyps, and a number of different varieties, and that information is quite important in ruling out colon cancers, and helping to determine intervals between screening colonoscopies. Because of the 2 large polyps that you had removed today, my inclination is to repeat your colonoscopy at 1 year, but I did like to wait to see the pathology report before making any final decisions. I did also use a tattoo to jelani one of these polyp areas so that we can identify the exact location and future colonoscopies. Based on the number, and size of the polyps that I removed today, I would anticipate a little bit of bleeding in your first few stools. Do not be alarmed if this occurs. If you start passing large blood clots (like red Jell-O blobs) I would like to know about that. Hopefully, you do not experience any bleeding at all, but it certainly is possible based on what we had to do today. The results from the polyp analysis will take about a week or 2 to get back, but once I have that information, my office will be in touch. Incidentally, he also have quite a bit of diverticulosis. Diverticula are weak spots in the muscular layer of the colon wall that cause pockets or pouches to form. These pockets are called diverticula, and the condition of having them is known as diverticulosis. Maintaining a diet that is rich in fiber, staying well- hydrated, and avoiding constipation are the basic approaches to managing this. I will attach a little bit of information here about diverticulosis as well as colon polyps. 1. If tolerated, consume a soft, low fiber diet for 1-2 days. 2. Do not drive, drink alcohol, operate machinery, make critical decisions, or do activities that require coordination or balance for 24 hours. 3. Because air was put into your colon during the procedure, expelling air from your rectum (passing gas or farting) is normal. 4. You may not have a bowel movement for 1-3 days because of the colonoscopy prep. This is normal. 5. Go directly to the emergency room if you notice any of the following: Develop chills (warm to touch), or if you have a thermometer and your temperature is above 101 Difficulty breathing or difficultly swallowing Persistent vomiting Severe abdominal pain, other than gas cramps Severe chest pain Black, tarry stools Any bleeding ? exceeding one tablespoon 6. Call your physician if the site where your intravenous was started becomes red, swollen, painful, and warm to touch. 7. Your physician has reviewed your pre-procedure medications. Please continue to take those medications as previously ordered. You will be given specific information/education regarding any changes to your medications before leaving. Activity:: Activity as Tolerated Diet:: As Tolerated Discharge Orders Discharge Orders: Discharge Order (Routine); Ordered 08/06/24 Ordered By: Jude Tyler DS: Diagnosis Discharge Diagnosis (1) Encounter for screening colonoscopy: Status: Acute Asessment and Plan: Follow-up on polypectomy results
--- NOTE | 2024-08-06 10:14 | COLE_ITS ---
Date of service: 08/07/24 Time of Service: 09:38 Colonoscopy Report Date of procedure: 08/07/24 Pre-op diagnosis general: screening colonoscopy Post-op diagnosis procedure note: other (Colorectal polyps, diverticulosis) Procedure: Colonoscopy with polypectomy and tattooing Surgeon: Jude Tyler Anesthesia Type: General:No Airway Estimated blood loss (mL): 10 Pathology: other (9 colon and rectal polyps) Complications: None Disposition: same day Indications: Suleman is a 59-year-old man who was getting screening colonoscopy Prep: Miralax/Dulcolax Procedure Start Time: 08:21 Procedure End Time: 09:18 Retraction Time: 29 Findings: Extensive sigmoid diverticulosis, colon rectal polyps. Rectal polyp #1, and colon polyp at 25 cm both exceed 1 cm in size Procedure Description: After the induction of anesthesia, and with the patient in left lateral decubitus position, I began by performing an external anorectal exam.? Perineum and skin were normal, as was the anal verge.? There was no evidence of external hemorrhoids.? Next, I performed a digital rectal exam.? I did not appreciate any abnormal findings.? Next, I advanced a colonoscope into the rectal vault.? I performed retroflexion.? This appeared normal.? The lower portion of the rectal vault were 3 polyps, and a very small clustered area. 1 of these was relatively large, exceeding 1 cm in size. It was relatively flat. These 3 polyps were retrieved. The largest polyp was retrieved with a energize snare polypectomy and was labeled rectal polyp #1. This area was tattooed. Using insufflation, I then advanced the colonoscope beyond the rectal folds and into the sigmoid colon before advancing towards the cecum.? There is extensive cavernous sigmoid diverticulosis the scope was noted to be in the cecum by identification of the ileocecal valve and appendiceal orifice.? I then began withdrawing the colonoscope using repeated irrigation as necessary for full evaluation of the colonic mucosa. ?A number of polyps were found in the ascending, transverse, and descending colon. These were removed with combination of energize snare polypectomy, as well as cold forcep polypectomy. Around 25 cm from the anal verge was another larger polyp. This was pedunculated. This was removed with a energize snare polypectomy. Once the scope was withdrawn to the level of the rectum, great care was taken to examine portions of the rectal folds.? Finally, the scope was withdrawn and the patient was brought to the same-day surgery recovery unit as the anesthetic wore off. ?The findings and instructions were shared with the patient prior to discharge. In total, combination of 9 colon rectal polyps were removed today. Custer Bowel Prep Custer Bowel Prep Right Colon: 3 Left Colon: 2 Transverse Colon: 3 Total Score: 8
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
[2024-08-07 07:55] VITALS: BP 134/88; PULSE 104; RESP 16; TEMP 36.8; O2SAT 100
[2024-08-07 08:09] VITALS: BMI 25.0
[2024-08-07] MEDS: Lactated Ringers 1,000 ML 80 ML IV (08:12)
--- NOTE | 2024-08-07 08:27 | BOWEL_PTH ---
PATIENT: Suleman Velez LOC: [facility] U#:[id number] AGE/SX: 59/M ROOM: RE08/07/[address]: Jude Tyler MD : 1965 BED: DIS: 08/07/2024 SPEC #: [id number] RECD: 08/07/24 13:02 STATUS: WILFRED RE #: [id number] GO: 08/07/24 08:[address]: Jude Tyler DEPT: Surgical Specimen RECD BY: Sapna Lewis ENTERED: 08/07/24 13:04 SP TYPE: Bowel OTHR DR: Feng Carpenter, [employer] Tissues: 1 - BIOPSY BOWEL 2 - BIOPSY BOWEL 3 - BIOPSY BOWEL 4 - BIOPSY BOWEL 5 - BIOPSY BOWEL 6 - BIOPSY BOWEL 7 - BIOPSY BOWEL 8 - BIOPSY BOWEL 9 - BIOPSY BOWEL Procedures: GROSS AND MICRO LEVEL 4 Comments: [id number]
[2024-08-07] MEDS: Endoscopic Tattoo 5 ML SYR IJ (08:38)
[2024-08-07 09:23] VITALS: BP 117/85; PULSE 85; RESP 14; TEMP 36.6; O2SAT 92
--- NOTE | 2024-08-07 09:44 | W.ANESPOSTOP ---
Postoperative Evaluation Date, Time and Location Date Performed: 08/07/24 Time Performed: 09:44 Patient Location: Day Surgery Unit Vital Signs Most Recent Imported Vital Signs: Most Recent Vital Signs Temp Pulse Resp BP Pulse Ox 36.6 C 85 14 117/85 92 08/07/24 09:23 08/07/24 09:23 08/07/24 09:23 08/07/24 09:23 08/07/24 09:23 Pain Score Most Recent Pain Score: Most Recent Pain Score Pain Level 0 08/07/24 09:23 Assessment Mental Status: Awake (Alert & Oriented to Patient Baseline) Airway and Respiratory Function: Patent airway with normal (patient baseline) respiratory exam Cardiovascular Function: Hemodynamically Stable Hydration Status: Adequately Hydrated Nausea & Vomiting: No Nausea or Vomiting Pain: Pt. Denies Any Pain Peripheral Nerve Block: Patient did not receive a nerve block
[2024-08-07 09:54] VITALS: BP 131/93; PULSE 83; RESP 16; TEMP 36.4; O2SAT 99
== END 2024-08-07 10:10 | disposition home or self-care (01) ==
LOC: SUR 07:43
PROVIDERS: PCP Nurse Practitioner Family; Visit Provider Surgery
PROC: 0DJD8ZZ Inspection of Lower Intestinal Tract, Via Natural or Artificial Opening Endoscopic (ICD-10-PCS; CPT 45378; principal; 2024-08-07 09:00)
DX: Z12.11 Encounter for screening for malignant neoplasm of colon (principal); D12.8 Benign neoplasm of rectum; K57.30 Diverticulosis of large intestine without perforation or abscess without bleeding; I10 Essential (primary) hypertension; D12.3 Benign neoplasm of transverse colon; D12.5 Benign neoplasm of sigmoid colon; D37.4 Neoplasm of uncertain behavior of colon
CPT/HCPCS: 45385; 45380; 45381; 88305; J2003; J2371; J2704

== ENCOUNTER 2025-03-09 07:41 | Day surgery (SDC) | payer BC, SELFPAY ==
--- NOTE | 2025-03-08 17:29 | W.PM.DSUDISC ---
Date of service: 03/09/25 Discharge Plan Disposition Patient Disposition: Home Condition: Good Discharge Details Reason For Visit: screening colonoscopy Attending Provider: Jude Tyelr Primary Care Provider: Feng Carpenter Home Meds and New Rx's Prescriptions: Continued lisinopril 30 mg tablet 30 mg PO DAILY Qty: 90 3RF Discontinued bisacodyl [Dulcolax (bisacodyl)] 5 mg tablet,delayed release (DR/EC) 5 mg PO ONCE Qty: 4 0RF Rx Instructions: take per colonoscopy instructions polyethylene glycol 3350 17 gram/dose powder 238 g PO ONCE Qty: 238 0RF Rx Instructions: take per colonoscopy instructions Discharge Instructions Additional Instructions: Suleman, was good to see you today, and I hope you feel great this afternoon. Things went very smoothly. Overall, reassured with the appearance of this colonoscopy. I did find, and remove 1 small polyp today. It does not appear suspicious to me. More importantly, the areas where your concerning polyps have been removed previously looked very good. I do not see any signs of recurrence, or any pathology in this area. Incidentally, and as I probably told you before, you have diverticulosis. Similar to the last colonoscopy, I will send this polyp to the pathologist for them to examine. Again, however, so far I think things look okay. As soon as I get the information from the pathologist I will let you know. If you need anything, please call. 1. If tolerated, consume a soft, low fiber diet for 1-2 days. 2[address] Do not drive, drink alcohol, operate machinery, make critical decisions, or do activities that require coordination or balance for 24 hours. 3. Because air was put into your colon during the procedure, expelling air from your rectum (passing gas or farting) is normal. 4. You may not have a bowel movement for 1-3 days because of the colonoscopy prep. This is normal. 5. Go directly to the emergency room if you notice any of the following: Develop chills (warm to touch), or if you have a thermometer and your temperature is above 101 Difficulty breathing or difficultly swallowing Persistent vomiting Severe abdominal pain, other than gas cramps Severe chest pain Black, tarry stools Any bleeding ? exceeding one tablespoon 6. Call your physician if the site where your intravenous was started becomes red, swollen, painful, and warm to touch. 7. Your physician has reviewed your pre-procedure medications. Please continue to take those medications as previously ordered. You will be given specific information/education regarding any changes to your medications before leaving. Stand Alone Forms: Anesthesia Discharge InstWinston Greene (DSU) Activity:: Activity as Tolerated Diet:: As Tolerated Discharge Orders Discharge Orders: Discharge Order (Routine); Ordered 03/08/25 Ordered By: Jude Tyler DS: Diagnosis Discharge Diagnosis (1) Colon polyp: Status: Acute Asessment and Plan: Follow-up on polypectomy results
--- NOTE | 2025-03-08 17:30 | W.COLOREPORT ---
Date of service: 03/09/25 Time of Service: 09: Colonoscopy Report Date of procedure: 03/09/25 Pre-op diagnosis general: screening colonoscopy Post-op diagnosis procedure note: other (Colon polyp, diverticulosis) Procedure: colonoscopy with polypectomy Surgeon: Jude Tyler Anesthesia Type: General:No Airway Estimated blood loss (mL): 5 Pathology: other (0.25 cm flat polyp at 45 cm) Complications: None Disposition: same day Indications: Suleman is a 59 year old man with a history of adenomatous polylps. One polyp demonstrated high grade dysplasia. He is undergoing follow up screening colonoscopy Prep: Miralax/Dulcolax Procedure Start Time: 08:56 Procedure End Time: 09:24 Retraction Time: 14 Findings: Sigmoid diverticulosis, 0.25 cm flat polyp with 45 cm Procedure Description: After the induction of anesthesia and with Suleman in left lateral decubitus position, I began by performing an external anorectal exam.? Perineum and skin were normal, as was the anal verge.? This was normal. Next, I performed a digital rectal exam.? I did not appreciate any abnormal findings.? Next, I advanced a colonoscope into the rectal vault.? I performed retroflexion.? This appeared normal. In the upper portion of the rectal vault was a previous colonoscopic tattoo. Several passes were taken across this area. I could clearly identify the site of his previous polyp resection. All of the surrounding tissue appeared normal and healthy. I saw no evidence of any other polyps in this area. Next, using irrigation, I then advanced the colonoscope beyond the rectal folds and into the sigmoid colon. As previously noted, there is sigmoid diverticulosis. The scope was noted to be in the cecum by identification of the ileocecal valve and appendiceal orifice.? I then began withdrawing the colonoscope using repeated irrigation as necessary for full evaluation of the colonic mucosa. ?Several passes were taken from 60 cm past the anal verge down through 30 cm. As this was an area where he had a previous polyp with high-grade dysplasia. I did identify one 0.25 cm flat polyp in this area. This was removed with cold forceps with minimal bleeding. Aside from this, the remainder of this segment looked healthy. once the scope was withdrawn to the level of the rectum, great care was taken to examine portions of the rectal folds.? Finally, the scope was withdrawn and the patient was brought to the same-day surgery recovery unit as the anesthetic wore off. ?The findings and instructions were shared with the patient prior to discharge. Tillman Bowel Prep Tillman Bowel Prep Right Colon: 3 Left Colon: 3 Transverse Colon: 3 Total Score: 9
[2025-03-09 07:59] VITALS: BP 103/70; PULSE 83; RESP 18; TEMP 36.4; O2SAT 98
[2025-03-09] MEDS: Lactated Ringers 1,000 ML 80 ML IV (08:16)
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
[2025-03-09 08:33] VITALS: BMI 23.8
--- NOTE | 2025-03-09 09:19 | BOWEL_PTH ---
PATIENT: Suleman Velez LOC: [facility] U#:[id number] AGE/SX: 59/M ROOM: RE03/09/[address]: Jude Tyler MD : 1965 BED: DIS: 03/09/2025 SPEC #: [id number] RECD: 03/09/25 12:37 STATUS: WILFRED RE #: [id number] GO: 03/09/25 09:[address]: Jude Tyler DEPT: Surgical Specimen RECD BY: Sapna Lewis ENTERED: 03/09/25 12:37 SP TYPE: Bowel OTHR DR: Feng Carpenter, DAVID Tissues: 1 - BIOPSY BOWEL Procedures: GROSS AND MICRO LEVEL 4 Comments: [id number]
[2025-03-09 09:30] VITALS: BP 74/52; PULSE 67; RESP 16; TEMP 36.3; O2SAT 98
--- NOTE | 2025-03-09 09:39 | W.ANESPOSTOP ---
Postoperative Evaluation Date, Time and Location Date Performed: 03/09/25 Time Performed: 09:39 Patient Location: Day Surgery Unit Vital Signs Most Recent Imported Vital Signs: Most Recent Vital Signs Temp Pulse Resp BP Pulse Ox 36.3 C L 67 16 74/52 L 98 03/09/25 09:30 03/09/25 09:30 03/09/25 09:30 03/09/25 09:30 03/09/25 09:30 Pain Score Most Recent Pain Score: Most Recent Pain Score Pain Level 0 03/09/25 09:30 Assessment Mental Status: Awake (Alert & Oriented to Patient Baseline) Airway and Respiratory Function: Patent airway with normal (patient baseline) respiratory exam Cardiovascular Function: Hemodynamically Stable Hydration Status: Adequately Hydrated Nausea & Vomiting: No Nausea or Vomiting Pain: Pt. Denies Any Pain Peripheral Nerve Block: Patient did not receive a nerve block
[2025-03-09 10:02] VITALS: BP 117/77; PULSE 70; RESP 16; TEMP 36.7; O2SAT 98
== END 2025-03-09 10:10 | disposition home or self-care (01) ==
LOC: SUR 07:42
PROVIDERS: PCP Nurse Practitioner Family; Visit Provider Surgery
PROC: 0DJD8ZZ Inspection of Lower Intestinal Tract, Via Natural or Artificial Opening Endoscopic (ICD-10-PCS; CPT 45378; principal; 2025-03-09 09:00)
DX: Z12.11 Encounter for screening for malignant neoplasm of colon (principal); D12.5 Benign neoplasm of sigmoid colon; K57.30 Diverticulosis of large intestine without perforation or abscess without bleeding
CPT/HCPCS: 45380; 88305; J2003; J2704

== ENCOUNTER 2025-04-20 00:57 | Outpatient (CLI) | payer OTHER, SELFPAY ==
[2025-04-20 17:41] LABS: Hemoglobin A1C 5.0 % (<5.7)
[2025-04-20 17:50] LABS: Cholesterol 122 mg/dL (<200); HDL Cholesterol 50 mg/dL (>or=40); Potassium 3.9 mmol/L (3.5-5.1)
== END 2025-04-20 00:58 | disposition home or self-care (01) ==
LOC: LOS 00:57
PROVIDERS: PCP Nurse Practitioner Family; Visit Provider Nurse Practitioner Family
DX: Z13.220 Encounter for screening for lipoid disorders (principal); Z13.1 Encounter for screening for diabetes mellitus; I10 Essential (primary) hypertension
CPT/HCPCS: 36415; 80061; 82565; 83036; 84132